=== PATIENT | female | born 1970 | race Caucasian/White ===

== ENCOUNTER 2017-03-22 15:15 | Emergency (ER) | payer OTHER ==
[~2017-03-22] VITALS: Ht 165.1 cm; Wt 89.9 kg
[2017-03-22 15:16] VITALS: TEMP 36.6; Ht 165.1 cm; Wt 89.9 kg
[2017-03-22] MEDS ORDERED: ACETAMINOPHEN 500 MG TAB PO STA (15:24)
[2017-03-22] MEDS ORDERED: IBUPROFEN 600 MG TAB PO STA (15:24)
[2017-03-22] MEDS ORDERED: ZOLP10TA6 PO (16:03)
[2017-03-22] MEDS ORDERED: INSDGIPEN SC (16:03)
[2017-03-22] MEDS ORDERED: METF1TAB85 PO (16:03)
[2017-03-22] MEDS ORDERED: NABU500T3 PO (16:03)
[2017-03-22] MEDS ORDERED: LISI-461 PO (16:03)
[2017-03-22] MEDS ORDERED: DULA0.5I SC (16:03)
[2017-03-22] MEDS ORDERED: FENO145T26 PO (16:03)
[2017-03-22] MEDS ORDERED: CLMTP25 TOP (16:03)
[2017-03-22] MEDS ORDERED: ROSU20TA PO (16:03)
[2017-03-22] MEDS ORDERED: CANA1TAB3 PO (16:03)
[2017-03-22] MEDS ORDERED: DULO60CA44 PO (16:03)
[2017-03-22] MEDS ORDERED: NEBI10TA2 PO (16:03)
--- NOTE | 2017-03-22 16:04 | EMERGENCY ROOM VISIT NOTE ---
History Report prepared by Jimmy: Nicole Fitzpatrick Under the Supervision of: Dr. Edwar Garcia M.D. First contact with patient: 15:19 Chief Complaint: SHOULDER PAIN Stated Complaint: INJURY TO COLLAR BONE AND SHOULDER (LEFT) History of Present Illness The patient is a 46 year old female who presents to the Emergency Room with complaints of worsening left shoulder pain starting 2 days ago. The patient states that she has a 15 month old grandson who throws temper tantrums. She reports that he threw his head back into her collar bone. She states that she thought it was just bruised, but it is getting worse. The patient complains of pain when swallowing, moving her neck, breathing, radiating into her shoulder, radiating into her elbow, radiating into her wrist, and radiating down her side. She currently rates her pain as a 7.5/10 in severity. The patient notes that she took Ibuprofen 800 mg with no relief last night. She denies icing her collar bone and ever injuring/breaking her collar bone. Source of History: patient Onset: two days ago Position: shoulder (left) Symptom Intensity: 7.5/10 Timing: worsening Modifying Factors (Worsening): breathing, movement, other (swallowing) Associated Symptoms: + abdominal pain Note: The patient complains of shoulder pain, elbow pain, and wrist pain. Review of Systems See HPI for pertinent positives & negatives. A total of 10 systems reviewed and were otherwise negative. Past Medical & Surgical Medical Problems: (1) No Known Active Medical Problems Family History No pertinent family history Social History Smoking Status: Never Smoker Marital Status: Housing Status: lives with significant other Current/Historical Medications Scheduled Canagliflozin (Invokana), 300 MG PO DAILY Dulaglutide (Trulicity), 1.5 MG SC WK Duloxetine Hcl (Cymbalta), 60 MG PO DAILY Estradiol (Climara), 0.025 MG TOP UD Fenofibrate (Tricor ), 145 MG PO DAILY Insulin Glargine (Lantus Solostar), 50 UNITS SC HS Lisinopril (Zestril), 5 MG PO DAILY Metformin Hcl (Metformin Hcl Er), 500 MG PO BID Nabumetone (Relafen), 500 MG PO BID Nebivolol Hcl (Bystolic), 10 MG PO DAILY Rosuvastatin Calcium (Crestor), 20 MG PO DAILY Zolpidem Tartrate (Zolpidem Tartrate), 10 MG PO HS Scheduled PRN Oxycodone Ir (Roxicodone Ir), 1-2 TAB PO Q4H PRN for Pain Allergies Coded Allergies: Amoxicillin (Verified Allergy, Severe, ANAPHYLAXIS, 03/22/17) Clavulanic Acid (Verified Allergy, Severe, ANAPHYLAXIS, 03/22/17) Metronidazole (Verified Allergy, Severe, Hives, difficulty breathing, ) Adhesives (Verified Allergy, Unknown, Skin, 03/22/17) Clarithromycin (Verified Allergy, Unknown, Rash, 03/22/17) Morphine (Verified Allergy, Unknown, Migraine headache, 03/22/17) Sulfa Antibiotics (Verified Allergy, Unknown, Fever, 03/22/17) Physical Exam Vital Signs Date Time Temp Pulse Resp B/P (MAP) Pulse Ox O2 Delivery O2 Flow Rate FiO2 03/22/17 18:12 91 18 112/74 97 03/22/17 17:11 93 20 105/62 98 Room Air 03/22/17 15:16 36.6 93 17 122/82 97 Room Air Physical Exam GENERAL: Patient is in no acute distress. HEENT: No acute trauma, normocephalic atraumatic, mucous membranes moist, no nasal congestion, no scleral icterus. NECK: No stridor, no adenopathy, no meningismus, trachea is midline. Tender along the left lateral neck. No swelling. Strong carotid pulse. Tenderness over the left trapezius muscle. LUNGS: Clear to auscultation bilaterally, no wheeze, no rhonchi, breath sounds equal. HEART: Without murmurs gallops or rubs, regular rate and rhythm. ABDOMEN: Soft, nontender, bowel sounds positive, no hernias, no peritonitis. EXTREMITIES: Pain over the mid left clavicle. No obvious deformity. No swelling. No evidence for sternoclavicular dislocation. Lateral left shoulder shows no evidence for dislocation. No evidence for focal discomfort over the shoulder proper. Strong left radial pulse. NVI distally left upper extremity. NEUROLOGIC: Oriented x 3, no acute motor or sensory deficits, no focal weakness. SKIN: No rash, no jaundice, no diaphoresis. Medical Decision & Procedures ER Provider Diagnostic Interpretation: Radiology results as stated below per my review and radiologist interpretation: CHEST 2 VIEWS ROUTINE CLINICAL HISTORY: chest trauma, left pain COMPARISON STUDY: No previous studies for comparison. FINDINGS: Slight asymmetry of the sternoclavicular joints. Lungs are clear. Diaphragms smooth. Costophrenic angles are sharp. IMPRESSION: Slight asymmetry of the sternoclavicular joints. Otherwise negative study. The above report was generated using voice recognition software. It may contain grammatical, syntax or spelling errors. Electronically signed by: Hugo Suh M.D. 03/22/2017 4:12 PM Dictated Date/Time: 03/22/2017 4:11 PM [facility] CLINICAL HISTORY: trauma to chest/clavicle trauma. Pain. COMPARISON: None. DISCUSSION: The clavicle specifically is negative for fracture. There is suggestion of a slight asymmetry of the sternoclavicular joints with the left slightly inferior as compared to the right There is no evidence for soft tissue swelling. IMPRESSION: Asymmetric sternoclavicular joints. Although components of this are projectional, CT study is recommended to exclude any possibility of sternoclavicular subluxation The above report was generated using voice recognition software. It may contain grammatical, syntax or spelling errors. Electronically signed by: Hugo Suh M.D. 03/22/2017 4:13 PM Dictated Date/Time: 03/22/2017 4:12 PM (CHEST) THORAX WITHOUT CT DOSE: 724.11 mGy.cm HISTORY: Trauma. Pain. attention left sternoclavicular joint for dislocation TECHNIQUE: Multiaxial CT images of the chest were performed without contrast. A dose lowering technique was utilized adhering to the principles of ALARA. COMPARISON: None. FINDINGS: Lungs are considered clear. No evidence pneumothorax or infiltrate. Hilar and mediastinal regions are negative for acute pathology. No significant adenopathy. Sternoclavicular joints are problematic in terms of evaluation as the patient maintains the right as well as left arms and different positions. Reconstructed images, however show the sternoclavicular joints to be in general symmetric. There is no evidence for sternoclavicular dislocation. There is perhaps a slight posterior displacement of the left clavicle in relation to the manubrium. This is estimated at no more than 4 mm. There is a suggestion of a very small incomplete nondisplaced cortical fracture of the left lateral articular surface of the superior left sternal manubrium. Note is made that the left anterior chest wall musculature is thickened as compared to the right possibly secondary to muscle contracture The remaining osseous structures are entirely unremarkable. There are no abnormal soft tissue changes. No free fluid is identified within the mediastinum or pericardial region. Limited evaluation the upper abdomen is unremarkable. There are mild degenerative changes of the thoracic spine. IMPRESSION: 1. This scan is difficult to interpret as the patient holds the right as well as left shoulders and arms in varying positions possibly due to muscular spasm. The left anterior chest wall musculature is thickened as compared to the right felt to be secondary to muscle spasm 2. Slight posterior subluxation of the left clavicle in relation to the sternal manubrium estimated at no more than 4 mm. 3. No evidence for a major sternoclavicular disassociation or dislocation. 4. Slight cortical fracture left superior manubrium at the articular surface with the medial left clavicle. 5. No abnormal mass collection or free fluid. 6. All remaining components of the study are unremarkable. The above report was generated using voice recognition software. It may contain grammatical, syntax or spelling errors. Electronically signed by: Hugo Suh M.D. 03/22/2017 5:01 PM Dictated Date/Time: 03/22/2017 4:43 PM Medications Administered Medications (Trade) Dose Ordered Sig/Mark Route Start Time Stop Time Status Last Admin Dose Admin Ibuprofen (Motrin Tab) 600 mg NOW STAT PO 03/22/17 15:24 03/22/17 15:26 DC 03/22/17 15:33 600 MG Acetaminophen (Tylenol Tab) 1,000 mg NOW STAT PO 03/22/17 15:24 03/22/17 15:26 DC 03/22/17 15:33 1,000 MG Cyclobenzaprine HCl (Flexeril Tab) 10 mg NOW STAT PO 03/22/17 17:58 03/22/17 17:59 DC 03/22/17 18:08 10 MG Cyclobenzaprine HCl (FLEXERIL 10MG Home Pack) 1 homepack UD ONCE PO 03/22/17 18:00 03/22/17 18:01 DC 03/22/17 18:08 1 HOMEPACK Oxycodone HCl (Roxicodone Immediate Rel 5MG Home Pack) 1 homepack UD ONCE PO 03/22/17 18:00 03/22/17 18:01 DC 03/22/17 18:08 1 HOMEPACK ED Course 1521: The patient was evaluated in room A11B. A complete history and physical exam was performed. 1524: Ordered Tylenol Tab 1000 mg PO, Motrin Tab 600 mg PO. 1620: I spoke with Dr. Suh from radiology and he agrees her x-rays are unusual looking. We are going to scan her for dislocation. 1622: I reevaluated the patient and updated her on the need for a CT scan. 1722: I discussed the patient's CT with Dr. Suh. 1734: I discussed the patient's case with Dr. Tenorio. He said that the patient can be discharged in a sling and follow up in the office. 1754: Reevaluated the patient. Discussed results and discharge instructions: She verbalized understanding and agreement. The patient is ready for discharge. 1758: Ordered Flexeril Tab 10 mg PO. 1800: Ordered Oxycodone HCl 1 homepack PO, Cyclobenzaprine 1 homepack PO. Medical Decision Differential diagnoses include clavicle fracture, clavicle dislocation, hematoma , contusion, rib fracture, pneumothorax, neurovascular compromise. The patient presents with left clavicle pain. On exam, clinically, there was no clavicle dislocation or shoulder dislocation. No contusions seen. There was a strong distal left radial pulse and the left upper extremity was neurovascularly intact distally. Films of the left clavicle and chest were done , there was no fracture seen, no pneumothorax or lung contusion. On film, the left sternoclavicular joint seemed slightly misaligned compared to the right. A chest CT was done, there was some subtle subluxation of about 4 mm noticed to the left sternoclavicular joint. A chip of bone was seen consistent with injury to this area. There was significant muscle spasm seen around the left chest and shoulder. No hematoma. No evidence for deep structure injury. The patient was given oral Motrin and oral Tylenol, she was given oral Flexeril. She was placed in a left arm sling. She did not want anything stronger for pain while in the ER. I spoke to Dr. Green of orthopedics. The patient is being discharged with follow-up on Thursday. The patient can return here to this ER for worsening symptoms or if not feeling improved. [place] Drug Monitoring Program Search Results: no issues identified Medication Reconcilliation Current Medication List: was personally reviewed by me Blood Pressure Screening Patient's blood pressure: Normal blood pressure Blood pressure disposition: Did not require urgent referral Consults Time Called: 1617 Consulting Physician: Dr. Suh- Radiology Returned Call: [address] Suh from radiology and he agrees her x-rays are unusual looking. We are going to scan her for dislocation. Additional Consults: Time Called: 1720 Consulted Physician: Dr. Suh- Radiology Returned Call: 1722 Additional Comments: I discussed the patient's CT with Dr. Suh. Time Called: 1730 Consulted Physician: Dr. Tenorio- Orthopedics Returned Call: 1734 Additional Comments: I discussed the patient's case with Dr. Tenorio. He said that the patient can be discharged in a sling and follow up in the office. Impression Primary Impression: Traumatic dislocation of left clavicle Additional Impression: Left shoulder pain Scribe Attestation The scribe's documentation has been prepared under my direction and personally reviewed by me in its entirety. I confirm that the note above accurately reflects all work, treatment, procedures, and medical decision making performed by me. Departure Information Dispostion Home / Self-Care Prescriptions Oxycodone Ir (Roxicodone Ir) 5 Mg Tab 1-2 TAB PO Q4H Y for Pain, #8 TAB Prov: Edwar Garcia M.D. 03/22/17 Referrals No Doctor, Assigned (PCP) Forms HOME CARE DOCUMENTATION FORM, IMPORTANT VISIT INFORMATION Patient Instructions My [facility] [employer] Additional Instructions flexeril 1 tab up to 3x per day for muscle relaxation oxy ir 1 tab every 4 hours for severe pain motrin/tylenol for moderate pain ice the area--30 minutes at a time for the next few days wear the sling for now see orthopedics--call thursday for an appt return for worsening pain, trouble breathing or worsening symptoms Problem Qualifiers
--- NOTE | 2017-03-22 16:14 | DIAGNOSTIC IMAGING REPORT ---
CHEST 2 VIEWS ROUTINE CLINICAL HISTORY: chest trauma, left pain COMPARISON STUDY: No previous studies for comparison. FINDINGS: Slight asymmetry of the sternoclavicular joints. Lungs are clear. Diaphragms smooth. Costophrenic angles are sharp. IMPRESSION: Slight asymmetry of the sternoclavicular joints. Otherwise negative study. The above report was generated using voice recognition software. It may contain grammatical, syntax or spelling errors. Electronically signed by: Hugo Suh M.D. 03/22/2017 4:12 PM Dictated Date/Time: 03/22/2017 4:11 PM
--- NOTE | 2017-03-22 16:15 | DIAGNOSTIC IMAGING REPORT ---
[facility] CLINICAL HISTORY: trauma to chest/clavicle trauma. Pain. COMPARISON: None. DISCUSSION: The clavicle specifically is negative for fracture. There is suggestion of a slight asymmetry of the sternoclavicular joints with the left slightly inferior as compared to the right There is no evidence for soft tissue swelling. IMPRESSION: Asymmetric sternoclavicular joints. Although components of this are projectional, CT study is recommended to exclude any possibility of sternoclavicular subluxation The above report was generated using voice recognition software. It may contain grammatical, syntax or spelling errors. Electronically signed by: Hugo Suh M.D. 03/22/2017 4:13 PM Dictated Date/Time: 03/22/2017 4:12 PM
--- NOTE | 2017-03-22 17:03 | DIAGNOSTIC IMAGING REPORT ---
(CHEST) THORAX WITHOUT CT DOSE: 724.11 mGy.cm HISTORY: Trauma. Pain. attention left sternoclavicular joint for dislocation TECHNIQUE: Multiaxial CT images of the chest were performed without contrast. A dose lowering technique was utilized adhering to the principles of ALARA. COMPARISON: None. FINDINGS: Lungs are considered clear. No evidence pneumothorax or infiltrate. Hilar and mediastinal regions are negative for acute pathology. No significant adenopathy. Sternoclavicular joints are problematic in terms of evaluation as the patient maintains the right as well as left arms and different positions. Reconstructed images, however show the sternoclavicular joints to be in general symmetric. There is no evidence for sternoclavicular dislocation. There is perhaps a slight posterior displacement of the left clavicle in relation to the manubrium. This is estimated at no more than 4 mm. There is a suggestion of a very small incomplete nondisplaced cortical fracture of the left lateral articular surface of the superior left sternal manubrium. Note is made that the left anterior chest wall musculature is thickened as compared to the right possibly secondary to muscle contracture The remaining osseous structures are entirely unremarkable. There are no abnormal soft tissue changes. No free fluid is identified within the mediastinum or pericardial region. Limited evaluation the upper abdomen is unremarkable. There are mild degenerative changes of the thoracic spine. IMPRESSION: 1. This scan is difficult to interpret as the patient holds the right as well as left shoulders and arms in varying positions possibly due to muscular spasm. The left anterior chest wall musculature is thickened as compared to the right felt to be secondary to muscle spasm 2. Slight posterior subluxation of the left clavicle in relation to the sternal manubrium estimated at no more than 4 mm. 3. No evidence for a major sternoclavicular disassociation or dislocation. 4. Slight cortical fracture left superior manubrium at the articular surface with the medial left clavicle. 5. No abnormal mass collection or free fluid. 6. All remaining components of the study are unremarkable. The above report was generated using voice recognition software. It may contain grammatical, syntax or spelling errors. Electronically signed by: Hugo Suh M.D. 03/22/2017 5:01 PM Dictated Date/Time: 03/22/2017 4:43 PM
[2017-03-22] MEDS ORDERED: CYCLOBENZAPRINE HCL 10 MG TAB PO STA (17:58)
[2017-03-22] MEDS ORDERED: OXYCODONE IR HOME PACK PO ONE (18:00)
[2017-03-22] MEDS ORDERED: FLEXERIL HOME PACK 10 MG VIAL PO ONE (18:00)
[2017-03-22] MEDS ORDERED: OXYC-90 PO (18:02)
[2017-03-22 18:12] VITALS: BP 112/74; PULSE 91; O2SAT 97
== END 2017-03-22 18:13 | disposition home or self-care (01) ==
LOC: C.EDB 15:16 → C.EDA 18:13
DX: S43.102A Unspecified dislocation of left acromioclavicular joint, initial encounter (principal); W51.XXXA Accidental striking against or bumped into by another person, initial encounter